=== PATIENT | female | born 1995 | race Two or more races ===

== ENCOUNTER 2024-06-02 17:03 | Emergency (ER) | payer OTHER ==
[~2024-06-02] VITALS: Ht 160 cm; Wt 99.1 kg
[2024-06-02 17:13] VITALS: TEMP 97.8
[2024-06-02] MEDS ORDERED: CETI-450 PO (17:17)
[2024-06-02] MEDS ORDERED: CHOL400T56 PO (17:17)
[2024-06-02] MEDS ORDERED: PREN-18 PO (17:17)
[2024-06-02] MEDS ORDERED: MONT-35 PO (17:17)
[2024-06-02] MEDS ORDERED: SEMA0.253 SQ (17:17)
[2024-06-02 21:15] VITALS: BP 118/65; PULSE 73; RESP 18; O2SAT 98
== END 2024-06-02 22:55 | disposition left against medical advice (07) ==
LOC: EMS 17:03
DX: R20.0 Anesthesia of skin (principal); Z53.21 Procedure and treatment not carried out due to patient leaving prior to being seen by health care provider